=== PATIENT | male | born 1940 | race Two or more races ===

== ENCOUNTER → 2025-05-23 | Emergency (ER) | payer OTHER ==
[~2025-05-23] VITALS: Ht 172.7 cm; Wt 74.8 kg
[~2025-05-23] MED LIST: CARDURA XL4 MG PO; DEXAMETHASONE SODIUM PHOSPHATE 4 MG/ML VIAL IM ONE; DEXAMETHASONE SODIUM PHOSPHATE 4 MG/ML VIAL ONE; DEXAMETHASONE4 MG PO; GABAPENTIN 100 MG CAPSULE PO ONE; GABAPENTIN100 MG PO; KETOROLAC TROMETHAMINE 60 MG VIAL IM ONE; ZESTRIL40 M1 PO; [UNRECOGNIZED DRUG - OTHER]
== END | disposition home or self-care (01) ==
LOC: ER 10:02
DX: K08.89 Other specified disorders of teeth and supporting structures (principal); I10 Essential (primary) hypertension
CPT/HCPCS: 70486; 96372; 99284; J1100; J1885

== ENCOUNTER 2025-07-17 18:23 | Inpatient (IN) | payer OTHER ==
[~2025-07-17] VITALS: Ht 170.2 cm; Wt 81.6 kg
[~2025-07-17 18:23] MED LIST changes: -DEXAMETHASONE SODIUM PHOSPHATE 4 MG/ML VIAL IM ONE; -DEXAMETHASONE SODIUM PHOSPHATE 4 MG/ML VIAL ONE; -GABAPENTIN 100 MG CAPSULE PO ONE; -KETOROLAC TROMETHAMINE 60 MG VIAL IM ONE
[2025-07-17] MEDS ORDERED: LISINOPRIL40 MG (19:36)
[2025-07-17] MEDS ORDERED: PEPCID20 MG (19:36)
[2025-07-17] MEDS ORDERED: MELOXICAM15 MG (19:36)
[2025-07-17] MEDS ORDERED: LYRICA100 MG (19:36)
--- NOTE | 2025-07-17 19:36 | NUR ---
SE RECIBE PACIENTE ALERTA Y ORIENTADO X 3 ESFERAS EN AMBULANCIA EN COMPANIA DE FAMILIAR LA CUAL INDICA QUE PACIENTE SUFRIO UN DESMAYO CUANDO IBA AL MARILYNN. SE REALIZA EKG. SE UBICA EN MONITOR CARDIACO Y OXIMETRIA DE PULSO. SE PRESENTA A .
[2025-07-17] MEDS ORDERED: 0.9 % SODIUM CHLORIDE 1,000 ML IV SCH (20:00)
[2025-07-17] MEDS ORDERED: FAMOTIDINE/PF 20 MG in 0.9 % SODIUM CHLORIDE 8 ML IV PUSH ONE (20:00)
[2025-07-17] MEDS ORDERED: IPRATROPIUM BROMIDE 0.5 MG/2.5 ML AMPUL.NEB IH ONE (20:00)
[2025-07-17] MEDS ORDERED: LEVALBUTEROL HCL 1.25 MG/3 ML SOLUTION IH ONE (20:00)
[2025-07-17] MEDS ORDERED: FAMOTIDINE/PF 20 MG/2 ML VIAL ONE (20:17)
[2025-07-17 20:42] LABS: BASO % 0.1 % (0.1-1.2); EOS # 0.08 (0.04-0.54); EOS % 0.6 % (0.7-7.0); LYMPH # 1.20 (1.18-3.74); LYMPH % 9.4 % (19.3-53.1); MEAN PLATELET VOLUME 10.70 fl (9.4-12.4); MONO # 0.82 (0.24-0.82); MONO % 6.4 % (4.7-12.5); NEUT # 10.62 (1.56-6.13); NEUT % 83.1 % (34.0-71.1); RED CELL DISTRIBUTION WIDTH 17.8 % (11.6-14.4)
[2025-07-17 20:47] LABS: ERYTHROCYTE SEDIMENTATION RATE 73 mm/hr (0-20)
[2025-07-17 21:20] LABS: INR 1.12
[2025-07-17 21:33] LABS: ALT/SGPT 21.0 U/L (12-78); AST/SGOT 27.0 U/L (15-37); BILIRUBIN TOTAL 0.4 mg/dL (0.3-1.2); BUN CREA RATIO 23.0 (7.0-25.0); CREATININE SERUM 1.42 mg/dL (0.70-1.30); GFR 47.27; GLOBULINA 3.0 G/DL (2.4-3.5); GLUCOSE FASTING 114.0 mg/dL (65-100); OSMOLALITY SERUM 293.0 MOSM/KG (275-295)
--- NOTE | 2025-07-17 22:18 | NUR ---
SE ORIENTA A FAMILIAR SOBRE [place] MEDICO, REFIERE ENTENDER. SE REALIZAN MUESTRAS DE LABORATORIO BAJO MEDIDAS ASEPTICAS. SE ADMINISTRA IV'S Y MEDICAMENTO JOHN PAUL ORDEN MEDICA. SE COORDINA CT. SE REALIZA EKG. SE NOTIFICA ABG Y TERAPIA RESPIRATORIA A .
[2025-07-17] MEDS ORDERED: PANTOPRAZOLE SODIUM 40 MG/VIAL VIAL IV ONE (22:45)
--- NOTE | 2025-07-17 23:43 | NUR ---
SE LE ORIENTA A PACIENTE Y FAMILIAR SOBRE NUEVO TRATAMIENTO MEDICO Y REFIEREN ENTNEDER, SE COTEJA CON FAMILIAR INFORMACION DE PACIENTE (NOMBRE COMPLETO Y FECHA DE NACIMIENTO), PERMISO DE TRANSFUCION ES TOMADO Y ADJUNTADO A RECORD DE PACIENTE, SE LE DARIO DOS TUBOS PILOTOS PARA REQUISION DE 2 UNIDADES PRBC'S SE HOLLIE EN LABORTORIO Y PERSONAL LLAMA A BANCO DE BETH DE AUXILIO MUTUO QUIENES REFIERE QUE PACIENTE NO TIENE RECORD. SE THOMAS TERCER TUBO MARCIO Y SE MARILYNN EN LABORATORIO.
[2025-07-18 04:12] LABS: URINE APPEARANCE Cloudy; URINE BILIRRUBIN Negative (NEGATIVE); URINE BLOOD Large; URINE COLOR Yellow; URINE GLUCOSE Negative (NEGATIVE); URINE KETONE Negative (NEGATIVE); URINE LEUKOCYTE Small; URINE NITRATE Negative; URINE PROTEIN 30 (NEGATIVE); URINE UROBILINOGEN 0.2 E.U./dl
[2025-07-18 04:17] LABS: URINE BACTERIA 83.5 uL (0.0-1933); URINE CAST 4.10 uL (0.0-1.40); URINE EPITHELIAL CELLS 6.5 uL (0.0-38.8); URINE RBC 1850.1 uL (0.0-20.8); URINE WBC 109.3 uL (0.0-23.2)
[2025-07-18 04:25] LABS: URINE CRYSTALS MODERATE /HPF
[2025-07-18] MEDS ORDERED: CEFTRIAXONE SODIUM 2,000 MG in 0.9 % SODIUM CHLORIDE 100 ML IV ONE (16:30)
--- NOTE | 2025-07-18 18:20 | NUR ---
SE LE MONITOREARON SIGNOS VITALES A PACIENTE POST TRANSFUCION Y EL MISMO PRESENTA FIEBRE DE 102.0, SE LE NOTIFICA A DR LISA, SE LE DARIO MUESTRAS DE PROTOCOLO DE REACCION DE TRANSFUCION Y SE HOLLIE EN LABORATORIO. DR LISA ORDENA VERBALMENTE CONTINUAR TRANSFUDIENDO A PACIENTE Y REFIERE QUE NO SE LE ADMINISTRARA PREMEDICACION AL MISMO.
[2025-07-18] MEDS ORDERED: ACETAMINOPHEN 500 MG GEL..CAP PO ONE (19:32)
[2025-07-18] MEDS ORDERED: CEFTRIAXONE SODIUM 2,000 MG VIAL ONE (19:53)
[2025-07-18] MEDS ORDERED: INSULIN LISPRO 1,000 UNIT/10 ML UNITS SUBCUTANEO PRN (20:00)
[2025-07-18] MEDS ORDERED: DEXTROSE 50 % IN WATER 0.5 G/ML DISP.SYRIN IV PRN (20:00)
[2025-07-18] MEDS ORDERED: CEFTRIAXONE SODIUM 2,000 MG in 0.9 % SODIUM CHLORIDE 100 ML IV SCH (20:07)
[2025-07-18] MEDS ORDERED: FOLIC ACID 1 MG TABLET PO SCH (20:08)
[2025-07-18] MEDS ORDERED: FERROUS SULFATE 325 MG TABLET.EC PO SCH (20:08)
[2025-07-18] MEDS ORDERED: AZITHROMYCIN 500 MG VIAL IV SCH (20:15)
[2025-07-18 21:17] LABS: COVID-19 AG NEGATIVE (NEGATIVE)
[2025-07-18 21:52] LABS: URINE APPEARANCE Clear; URINE BILIRRUBIN Negative (NEGATIVE); URINE BLOOD Trace; URINE COLOR Yellow; URINE GLUCOSE Negative (NEGATIVE); URINE KETONE Negative (NEGATIVE); URINE LEUKOCYTE Negative; URINE NITRATE Negative; URINE PROTEIN Negative (NEGATIVE); URINE UROBILINOGEN 0.2 E.U./dl
[2025-07-18 21:56] LABS: URINE BACTERIA 11.4 uL (0.0-1933); URINE RBC 4.8 uL (0.0-20.8)
[2025-07-18 22:04] LABS: URINE CAST 0.00 uL (0.0-1.40); URINE EPITHELIAL CELLS 0.1 uL (0.0-38.8); URINE WBC 1.0 uL (0.0-23.2)
[2025-07-18 23:30] VITALS: BP 120/75; O2SAT 100
[2025-07-19 04:53] LABS: BASO % 0.1 % (0.1-1.2); EOS # 0.60 (0.04-0.54); EOS % 6.1 % (0.7-7.0); LYMPH # 1.93 (1.18-3.74); LYMPH % 19.6 % (19.3-53.1); MEAN PLATELET VOLUME 10.70 fl (9.4-12.4); MONO # 0.72 (0.24-0.82); MONO % 7.3 % (4.7-12.5); NEUT # 6.55 (1.56-6.13); NEUT % 66.7 % (34.0-71.1); RED CELL DISTRIBUTION WIDTH 19.2 % (11.6-14.4)
[2025-07-19 05:05] LABS: ERYTHROCYTE SEDIMENTATION RATE 113 mm/hr (0-20)
[2025-07-19 05:12] LABS: INR 1.07
[2025-07-19 05:14] LABS: BUN CREA RATIO 20.0 (7.0-25.0); CREATININE SERUM 0.79 mg/dL (0.70-1.30); GFR 93.0; GLUCOSE FASTING 100.0 mg/dL (65-100); OSMOLALITY SERUM 283.0 MOSM/KG (275-295)
[2025-07-19] MEDS ORDERED: AZITHROMYCIN 500 MG VIAL IV ONE (08:44)
[2025-07-19] MEDS ORDERED: OSELTAMIVIR PHOSPHATE 75 MG CAPSULE PO SCH (09:00)
[2025-07-19 10:10] VITALS: BP 130/62; O2SAT 98
[2025-07-19 18:35] VITALS: BP 153/67; O2SAT 95
[2025-07-20 01:16] VITALS: BP 152/64; O2SAT 95
[2025-07-20] MEDS ORDERED: AZITHROMYCIN 500 MG VIAL IV ONE (08:21)
[2025-07-20 09:12] VITALS: BP 136/65; O2SAT 93
[2025-07-20 18:25] LABS: ob NEGATIVE (NEGATIVE)
[2025-07-20 21:41] VITALS: BP 155/60
[2025-07-21 01:00] VITALS: BP 150/50; O2SAT 95
[2025-07-21 08:52] LABS: ALT/SGPT 33.0 U/L (12-78); AST/SGOT 37.0 U/L (15-37); BILIRUBIN TOTAL 0.48 mg/dL (0.3-1.2); BUN CREA RATIO 23.0 (7.0-25.0); CREATININE SERUM 0.53 mg/dL (0.70-1.30); GFR 147.41; GLOBULINA 3.4 G/DL (2.4-3.5); GLUCOSE FASTING 84.0 mg/dL (65-100); OSMOLALITY SERUM 284.0 MOSM/KG (275-295)
[2025-07-21] MEDS ORDERED: AZITHROMYCIN 500 MG VIAL IV ONE (09:05)
[2025-07-21 10:45] VITALS: BP 165/52; O2SAT 97
== END 2025-07-21 15:11 | disposition home or self-care (01) | DRG 194 ==
LOC: ER → SURG 07-18 21:41 → MEDJ 07-18 21:41 → MEDI 07-18 21:49 → MEDJ 07-19 00:05
PROVIDERS: General Practice; Internal Medicine; ADMIT Student in an Organized Health Care Education/Training Program; ATTEND Student in an Organized Health Care Education/Training Program
PROC: B020ZZZ Computerized Tomography (CT Scan) of Brain (ICD-10-PCS; principal; 2025-07-17)
PROC: BW24ZZZ Computerized Tomography (CT Scan) of Chest and Abdomen (ICD-10-PCS; 2025-07-18)
PROC: B24BYZZ Ultrasonography of Heart with Aorta using Other Contrast (ICD-10-PCS; 2025-07-18)
PROC: 4A12X4Z Monitoring of Cardiac Electrical Activity, External Approach (ICD-10-PCS; 2025-07-19)
PROC: 30233N1 Transfusion of Nonautologous Red Blood Cells into Peripheral Vein, Percutaneous Approach (ICD-10-PCS; 2025-07-19)
DX: J10.1 Influenza due to other identified influenza virus with other respiratory manifestations (principal); N17.9 Acute kidney failure, unspecified; N39.0 Urinary tract infection, site not specified; D72.829 Elevated white blood cell count, unspecified; D64.9 Anemia, unspecified; G50.0 Trigeminal neuralgia; R55 Syncope and collapse